=== PATIENT | male | born 1995 | race Caucasian/White ===

== ENCOUNTER 2017-07-10 12:31 | Emergency (ER) | END 2017-07-10 16:00 | disposition home or self-care (01) ==

== ENCOUNTER 2018-10-18 08:50 | Emergency (ER) | payer OTHER ==
[~2018-10-18] VITALS: Ht 177.8 cm; Wt 116.3 kg
[~2018-10-18 08:50] MED LIST: HYDR-4011 PO; IBUP-1542 PO; IBUP800T48 PO; NPH10OT BOTH EARS
[2018-10-18 08:52] VITALS: BP 136/71; PULSE 78; RESP 20; Ht 177.8 cm; Wt 116.3 kg
--- NOTE | 2018-10-18 10:06 | ERD ---
ER Documentation Chief Complaint Chief Complaint c/o left ear pain x1 week, "feels blocked" HPI 23-year-old male presents complaint of left ear pain for the past week as well as some diminished hearing on that side. States that the pain is now also occurring in his right ear. Patient denies any bulging behind the ears, pain behind the ears, discharge coming from the ears, fevers, chills, headaches. Denies any treatments. ROS All systems reviewed and are negative except as per history of present illness. Medications Home Meds Active Scripts Ibuprofen* (Motrin*) 600 Mg Tab, 600 MG PO Q6, #30 TAB Prov:NIKKY BATES 10/18/18 Neomycin/Polymyxin/Hydrocort* (Cortisporin* Otic) 10 Ml Susp, 4 DROP BOTH EARS QID for 7 Days, EA Prov:NIKKY BATES 10/18/18 Hydrocodone/Acetaminophen ([place] 5-325 Tablet) 1 Each Tablet, 1 TAB PO Q6H PRN for PAIN, #20 TAB Prov:ROMA MURILLO MD 07/10/17 Ibuprofen* (Motrin*) 800 Mg Tab, 800 MG PO Q6H PRN for PAIN AND OR ELEVATED TEMP, #30 TAB Prov:ROMA MURILLO MD 07/10/17 Allergies Allergies: Coded Allergies: No Known Allergy (Unverified , 07/10/17) PMhx/Soc History of Surgery: Yes (appendectomy as kid) Hx Alcohol Use: Yes (1/ month) Hx Substance Use: No Hx Tobacco Use: No Smoking Status: Never smoker FmHx Family History: No diabetes, No coronary disease, No other Physical Exam Vitals Vital Signs Date Temp Pulse Resp B/P (MAP) Pulse Ox O2 O2 Flow FiO2 Time Delivery Rate 10/18/18 98.3 78 20 136/71 100 08:52 (92) Physical Exam Const: No acute distress Head: Atraumatic Eyes: Normal Conjunctiva ENT: Normal External Ears, Nose and Mouth. Ear canals are edematous with discharge bilaterally. No blood noted. Mastoids are nontender to palpation, nonedematous, nonerythematous bilaterally. Neck: Full range of motion. No meningismus. Resp: Clear to auscultation bilaterally Cardio: Regular rate and rhythm, no murmurs Abd: Soft, non tender, non distended. Normal bowel sounds Skin: No petechiae or rashes Back: No midline or flank tenderness Ext: No cyanosis, or edema Neur: Awake and alert Psych: Normal Mood and Affect Procedures/MDM MDM: Patient presents consistent with acute otitis externa. Patient will be placed on Cortisporin drops. I have low suspicion for mastoiditis, malignant otitis externa, ruptured TM, or any other emergent condition. At this time, patient is stable for discharge and outpatient management. I have instructed the patient to follow-up with his/her primary care physician in 1-2 days. I have discussed with the patient the possibility of needing to see a specialist for further workup and imaging studies if symptoms persist. I have instructed the patient to promptly return to the ER for any new or worsening symptoms including but not limited to increased pain, fever, nausea, vomiting, weakness or LOC. The patient and/or family expressed understanding of and agreement with this plan. All questions were answered. Home care instructions were provided. DISCLAIMER: Inadvertent spelling and grammatical errors are likely due to EHR/dictation software use and do not reflect on the overall quality of patient care. Also, please note that the electronic time recorded on this note does not necessarily reflect the actual time of the patient encounter. Departure Diagnosis: Primary Impression: Otitis externa Condition: Stable Patient Instructions: External Ear Infection (Adult) Additional Instructions: FOLLOW UP WITH YOUR PRIMARY CARE PHYSICIAN TOMORROW.Return to this facility if you are not improving as expected. NIKKY BATES Oct 18, 2018 10:06
== END 2018-10-18 09:48 | disposition home or self-care (01) ==
LOC: FTE 08:50
DX: H60.92 Unspecified otitis externa, left ear (principal)
CPT/HCPCS: 99283

== ENCOUNTER 2019-01-24 12:04 | Emergency (ER) | payer OTHER ==
[~2019-01-24] VITALS: Ht 177.8 cm; Wt 112.2 kg
[~2019-01-24 12:04] MED LIST changes: +ELEC100080 PO; +LOPE2CAP PO; +ONDA4TAB14 PO
[2019-01-24 12:32] VITALS: BP 147/69; PULSE 84; RESP 19; Ht 177.8 cm; Wt 112.2 kg
== END 2019-01-24 15:11 | disposition home or self-care (01) ==
LOC: FTE 12:04
DX: R11.2 Nausea with vomiting, unspecified (principal); R19.7 Diarrhea, unspecified
CPT/HCPCS: 99283